=== PATIENT | male | born 1965 | race Hispanic/Latino ===

== ENCOUNTER 2017-01-30 10:49 | Emergency (ER) | payer OTHER ==
[2017-01-30 11:07] VITALS: BMI 27.1
[2017-01-30 11:08] VITALS: BP 126/84; PULSE 65; RESP 20; TEMP 98.5; O2SAT 99
[2017-01-30] MEDS ORDERED: Fluorescein 1 mg Ophthalmic Strip ONE (12:22)
--- NOTE | 2017-01-30 12:34 | ED PDOC ---
HPI: Eye Injury/Pain Time Seen by Provider: 01/30/17 12:20 Chief Complaint (Nursing): ENT Problem Chief Complaint (Provider): Left eye injury History Per: Patient History/Exam Limitations: no limitations Onset/Duration Of Symptoms: Mins Current Symptoms Are (Timing): Still Present Injury To Eye?: No Severity: Moderate Quality: "Pain" Wears Contact Lens?: No Associated Symptoms: FB Sensation, Itching, Other (conjunctival hemorrhage) Additional History Per: Patient Additional Complaint(s): The pt is a 51yo male h/o HIV on [place] presents to the ED for evaluation of left eye irritation. Pt reports he had something lodged in his throat last night and while coughing, he noticed blood in his left eye. Reports a scratchy sensation in his left eye with increased pain. Pt reports he has recently been taking Medrol dose pack for bronchiti. Does not wear contact lens. Has had zoster involving left eye in past. He denies any history of blood thinner usage , falls or injury to his eye Past Medical History Reviewed: Historical Data, Nursing Documentation, Vital Signs Vital Signs: Last Vital Signs Temp 98.5 F 01/30/17 11:07 Pulse 65 01/30/17 11:07 Resp 20 01/30/17 11:07 BP 126/84 01/30/17 11:07 Pulse Ox 99 01/30/17 11:07 - Medical History PMH: HTN - Surgical History Surgical History: No Surg Hx - Family History Family History: States: No Known Family Hx - Home Medications Home Medications: Ambulatory Orders Medication Instructions Recorded Ciprofloxacin 0.3% [Ciloxan 0.3% 1 drop LEFTEYE QID #1 bottle 01/30/17 Ophth SOLN] Naproxen [Naprosyn Tab] 375 mg PO Q8 PRN #21 tab 01/30/17 - Allergies Allergies/Adverse Reactions: Allergies Allergy/AdvReac Type Severity Reaction Status Date / Time Penicillins Allergy RASH Verified 01/30/17 11:06 Review of Systems ROS Statement: Except As Marked, All Systems Reviewed And Found Negative Eyes: Positive for: Other (left conjunctival hemorrhage) Respiratory: Positive for: Cough Gastrointestinal: Positive for: Vomiting (x 1 episode yesterday) Physical Exam - Reviewed Nursing Documentation Reviewed: Yes Vital Signs Reviewed: Yes - Physical Exam Appears: Positive for: Well, Non-toxic, No Acute Distress Head Exam: Positive for: ATRAUMATIC, NORMAL INSPECTION, NORMOCEPHALIC Skin: Positive for: Normal Color, Warm Eye Exam: Positive for: EOMI, PERRL, Other (subconjunctival hemorrhage in left eye with chemosis and fluorescein uptake by lateral aspect of eye) Neck: Positive for: Normal Respiratory: Negative for: Respiratory Distress Neurologic/Psych: Positive for: Alert, Oriented - ECG O2 Sat by Pulse Oximetry: 99 - Progress ED Course And Treament: d/w Dr. Wilkins. Patient to f/u him tomorrow at 9am for evaluation of eye or f/ u with private opthalmologist tomorrow. Medical Decision Making Medical Decision Making: Time: 1230 Impression: Left sub-conjunctival hemorrhage Plan: * Fluoroscene drop * Reassess Time: 1245 Pt stable for d/c home. Will gie Rx eye drops and Naprosyn for pain. Pt advised to f/u with PCP in 1-2 days. Scribe Attestation: All records were documented by Magalys Kelly, acting as a Scribe for CIARAN Ramirez. Provider Scribe Attestation: All medical record entries made by the Scribe were at my direction and personally dictated by me. I have reviewed the chart and agree that the record accurately reflects my personal performance of the history, physical exam, medical decision making, and the department course for this patient. I have also personally directed, reviewed, and agree with the discharge instructions and disposition. Disposition - Clinical Impression Clinical Impression: Subconjunctival hemorrhage of left eye, Corneal abrasion - Patient ED Disposition Is Patient to be Admitted: No - Disposition Referrals: Jd Wilkins MD [Staff Provider] - Disposition: Routine/Home Disposition Time: 12:45 Condition: FAIR Prescriptions: Ciprofloxacin 0.3% [Ciloxan 0.3% Ophth SOLN] 1 drop LEFTEYE QID #1 bottle Naproxen [Naprosyn Tab] 375 mg PO Q8 PRN #21 tab PRN Reason: Pain, Moderate (4-7) Instructions: Subconjunctival Hemorrhage (ED), Corneal Abrasion (ED) Forms: [facility] ED School/Work Excuse
== END 2017-01-30 12:53 | disposition home or self-care (01) ==
LOC: H.ER 10:49
DX: H11.32 Conjunctival hemorrhage, left eye (principal); I10 Essential (primary) hypertension; Z88.0 Allergy status to penicillin

== ENCOUNTER 2019-01-05 13:32 | Emergency (ER) | payer OTHER ==
[2019-01-05 13:32] VITALS: BMI 27.1
[2019-01-05 13:40] VITALS: RESP 16
[2019-01-05 14:17] LABS: BASO % 0.5 % (0.0-2.0); EOS # 0.1 K/uL (0.0-0.7); HEMOGLOBIN 14.3 g/dL (12.0-18.0); LYMPH # 2.1 K/uL (1.0-4.3); LYMPH % 33.5 % (20.0-40.0); MEAN CELL VOLUME 98.2 fl (80.0-94.0); MEAN CORPUSCULAR HEMOGLOBIN 33.7 pg (27.0-31.0); MEAN CORPUSCULAR HGB CONC 34.3 g/dL (33.0-37.0); MEAN PLATELET VOLUME 8.9 fl (7.2-11.7); MONO # 0.3 K/uL (0.0-0.8); MONO % 4.7 % (0.0-10.0); NEUT # 3.6 K/uL (1.8-7.0); NEUT % 59.3 % (50.0-75.0); RBC 4.25 Mil/uL (4.40-5.90); WHITE BLOOD COUNT 6.1 K/uL (4.8-10.8)
--- NOTE | 2019-01-05 14:24 | ED PDOC ---
Lower Extremity Pain/Injury Time Seen by Provider: 01/05/19 13:48 Chief Complaint (Nursing): Lower Extremity Problem/Injury Chief Complaint (Provider): Left leg swelling and pain History Per: Patient History/Exam Limitations: no limitations Onset/Duration Of Symptoms: Days (x2) Current Symptoms Are (Timing): Still Present Additional Complaint(s): 53 y/o male, with a history of gastritis, HTN, and high cholesterol, presents to the ER with left leg swelling and pain since yesterday. Patient states he noticed the swelling, pain and tenderness yesterday when he was touching the area and came to the ER today. He reports pain in the area and states he did not take any medications for pain. Patient is also complaining of intermittent shortness of breath for 1 week. He was seen at [facility] earlier this week and was told allergies and sinusitis contributed to shortness of breath. Denies fever, chest pain, or recent injury. He states he often travels internationally. His last trip was to [place] and came back from [facility] [place] 1 month ago. PMD: in [place] Past Medical History Reviewed: Historical Data, Nursing Documentation, Vital Signs Vital Signs: Last Vital Signs Temp 97.4 F L 01/05/19 13:34 Pulse 69 01/05/19 13:34 Resp 16 01/05/19 13:34 BP 138/86 01/05/19 13:34 Pulse Ox 97 01/05/19 13:34 Primary Care Provider: DONALD CORLEY - Medical History PMH: Gastritis, HIV, HTN, Hypercholesterolemia - Surgical History Surgical History: No Surg Hx - Family History Family History: States: No Known Family Hx - Social History Current smoker - smoking cessation education provided: No Alcohol: None - Home Medications Home Medications: Ambulatory Orders Medication Instructions Recorded Ciprofloxacin 0.3% [Ciloxan 0.3% 1 drop LEFTEYE QID #1 bottle 01/30/17 Ophth SOLN] Naproxen [Naprosyn Tab] 375 mg PO Q8 PRN #21 tab 01/30/17 - Allergies Allergies/Adverse Reactions: Allergies Allergy/AdvReac Type Severity Reaction Status Date / Time Penicillins Allergy RASH Verified 01/05/19 13:34 Review of Systems ROS Statement: Except As Marked, All Systems Reviewed And Found Negative Constitutional: Negative for: Fever Cardiovascular: Negative for: Chest Pain Respiratory: Positive for: Shortness of Breath Musculoskeletal: Positive for: Leg Pain (left leg swelling and pain) Physical Exam - Reviewed Nursing Documentation Reviewed: Yes Vital Signs Reviewed: Yes - Physical Exam Appears: Positive for: No Acute Distress Head Exam: Positive for: ATRAUMATIC, NORMOCEPHALIC Skin: Positive for: Normal Color, Warm, Dry Eye Exam: Positive for: Normal appearance ENT: Positive for: Normal ENT Inspection Neck: Positive for: Normal, Painless ROM Cardiovascular/Chest: Positive for: Regular Rate, Rhythm Respiratory: Positive for: Normal Breath Sounds. Negative for: Wheezing, Respiratory Distress Extremity: Positive for: Normal ROM, Calf Tenderness (left), Other (left lower leg: swelling and mild discoloration to the left calf; (-) redness. Other extremities are normal) Neurological/Psych: Positive for: Awake, Alert, Normal Tone, Oriented - Laboratory Results Result Diagrams: 01/05/19 14:11 01/05/19 14:11 - ECG ECG: Positive for: Interpreted By Me, Viewed By Me ECG Rhythm: Positive for: Normal QRS, Normal ST Segment, Sinus Rhythm. Negative for: ST/T Changes Rate: 61 O2 Sat by Pulse Oximetry: 97 (RA) Pulse Ox Interpretation: Normal - Progress Re-evaluation Time: 16:05 Condition: Re-examined, Improved Medical Decision Making Medical Decision Making: Initial Impression: left leg swelling and pain, shortness of breath Differential includes DVT and PE associated with DVT Initial Plan: --CT angio chest --EKG --BMP --Troponin stat --CBC --PTT --Prothrombin time --US duplex lower extremities Time: 1532 US RESULTS This report is currently processing and HAS NOT BEEN OFFICIALLY SIGNED BY THE PHYSICIAN - ESTIMATED TIME OF APPROVAL IS 01/05/2019 15:37. Date of service: 01/05/2019 HISTORY: left leg swelling tenderness redness. PRIORS: None. FINDINGS: 2-D, color and duplex Doppler analysis of the lower extremity venous circulation using routine protocol from the femoral veins through the popliteal veins. Venous compressibility: Normal. Flow and augmentation patterns: Normal. Visualized veins upper third of calf: Normal. King cyst: None. IMPRESSION: No sonographic or Doppler evidence for DVT in left lower extremity. 15:[address] FINDINGS: PULMONARY ARTERIES: No pulmonary embolism however note is made of small bubble of air along the within the anterior lumen of the pulmonary trunk due to air accompanying the intravenous injection. Pulmonary trunk measures approximately 2.3 cm. AORTA: No acute findings. No thoracic aortic aneurysm. Ascending thoracic aorta measures approximately 3.5 cm and descending thoracic aorta measures approximately 2.7 cm. No aortic atherosclerotic calcification or mural plaque present. LUNGS: Mild bibasilar atelectasis and or scarring changes both posterior sulci with minor linear scarring in the lingular and middle lobe regions as well... There is a tiny pneumatocele seen in the left posterior lower lung field. Tiny bleb right lateral lung base- lateral sulcus. PLEURAL SPACES: Unremarkable. No effusion or pneumothorax. HEART: Unremarkable. No cardiomegaly. No significant pericardial effusion. LYMPH NODES: Small nonspecific mediastinal lymph nodes are present. BONES, CHEST WALL: Mild multilevel degenerative spondylosis of the thoracic spine. OTHER FINDINGS: Small hiatal hernia. Spleen is enlarged measuring nearly 15.5 cm in AP dimension. IMPRESSION: No evidence of acute central pulmonary embolus. Note is made of a small bubble of air within the located along the within the anterior aspect of the pulmonary trunk secondary to intravenous injection Mild atelectasis/scarring both lung bases including the middle lobe and lingular regions. Small pneumatocele left lower lobe and tiny bleb right lateral lower lung field. Splenomegaly. Scribe Attestation: Documented by Elvin Feliz acting as a scribe for Kiesha Damon MD. Provider Scribe Attestation: All medical record entries made by the Scribe were at my direction and personally dictated by me. I have reviewed the chart and agree that the record accurately reflects my personal performance of the history, physical exam, medical decision making, and the department course for this patient. I have also personally directed, reviewed, and agree with the discharge instructions and disposition. Disposition - Clinical Impression Clinical Impression: Left leg swelling, Dyspnea - Patient ED Disposition Is Patient to be Admitted: No Doctor Will See Patient In The: Office Counseled Patient/Family Regarding: Studies Performed, Diagnosis, Need For Followup - Disposition Disposition: Routine/Home Disposition Time: 16:05 Condition: GOOD Additional Instructions: KARLA RENE JR, thank you for letting us take care of you today. Your provider was Kiesha Damon MD and you were treated for LT LEG SWELLING. The emergency medical care you received today was directed at your acute symptoms. If you were prescribed any medication, please fill it and take as directed. It may take several days for your symptoms to resolve. Return to the Emergency Department if your symptoms worsen, do not improve, or if you have any other problems. Please contact your doctor or call one of the physicians/clinics you have been referred to that are listed on the Patient Visit Information form that is included in your discharge packet. Bring any paperwork you were given at discharge with you along with any medications you are taking to your follow up visit. Our treatment cannot replace ongoing medical care by a primary care provider outside of the emergency department. Thank you for allowing the [facility] team to be part of your care today. If you had an X-Ray or CT scan: A Radiologist will review the ED reading if any change in treatment is needed we will contact you. If you had a blood, urine, or wound culture: It will take several days for the results, if any change in treatment is needed we will contact you. Instructions: Shortness of Breath (Dyspnea), Varicose Veins and Other Vein Disease in the Legs
[2019-01-05 14:25] LABS: INR 1.1; PROTHROMBIN TIME 12.6 Seconds (9.8-13.1)
[2019-01-05 14:28] LABS: PARTIAL THROMBOPLASTIN TIME 32.2 Seconds (25.6-37.1)
[2019-01-05 14:32] LABS: BLOOD UREA NITROGEN 12 mg/dl (9-20); CALCIUM 9.7 mg/dL (8.4-10.2); GFR NON-AFRICAN AMERICAN > 60
[2019-01-05] MEDS ORDERED: Iodixanol 320 MG/ML 100 ML BOTTLE IV ONE (14:49)
[2019-01-05] MEDS ORDERED: Sodium Chloride 0.9% 50 ML IV ONE (14:50)
--- NOTE | 2019-01-05 15:36 | US ---
Date of service: 01/05/2019 HISTORY: left leg swelling tenderness redness. PRIORS: None. FINDINGS: 2-D, color and duplex Doppler analysis of the lower extremity venous circulation using routine protocol from the femoral veins through the popliteal veins. Venous compressibility: Normal. Flow and augmentation patterns: Normal. Visualized veins upper third of calf: Normal. King cyst: None. IMPRESSION: No sonographic or Doppler evidence for DVT in left lower extremity.
--- NOTE | 2019-01-05 16:00 | CT ---
Date of service: 01/05/2019 PROCEDURE: CT Chest with contrast (Pulmonary Angiogram) HISTORY: Dyspnea the patient with recent travel left leg swelling COMPARISON: None available. TECHNIQUE: Axial computed tomography images were obtained of the chest in the pulmonary arterial phase of enhancement. Coronal and sagittal reformatted images were created and reviewed. Intravenous contrast dose: 99 cc Visipaque 320 Radiation dose: Total exam DLP = 368.46 mGy-cm. This CT exam was performed using one or more of the following dose reduction techniques: Automated exposure control, adjustment of the mA and/or kV according to patient size, and/or use of iterative reconstruction technique. FINDINGS: PULMONARY ARTERIES: No pulmonary embolism however note is made of small bubble of air along the within the anterior lumen of the pulmonary trunk due to air accompanying the intravenous injection. Pulmonary trunk measures approximately 2.3 cm. AORTA: No acute findings. No thoracic aortic aneurysm. Ascending thoracic aorta measures approximately 3.5 cm and descending thoracic aorta measures approximately 2.7 cm. No aortic atherosclerotic calcification or mural plaque present. LUNGS: Mild bibasilar atelectasis and or scarring changes both posterior sulci with minor linear scarring in the lingular and middle lobe regions as well... There is a tiny pneumatocele seen in the left posterior lower lung field. Tiny bleb right lateral lung base- lateral sulcus. PLEURAL SPACES: Unremarkable. No effusion or pneumothorax. HEART: Unremarkable. No cardiomegaly. No significant pericardial effusion. LYMPH NODES: Small nonspecific mediastinal lymph nodes are present. BONES, CHEST WALL: Mild multilevel degenerative spondylosis of the thoracic spine. OTHER FINDINGS: Small hiatal hernia. Spleen is enlarged measuring nearly 15.5 cm in AP dimension. IMPRESSION: No evidence of acute central pulmonary embolus. Note is made of a small bubble of air within the located along the within the anterior aspect of the pulmonary trunk secondary to intravenous injection Mild atelectasis/scarring both lung bases including the middle lobe and lingular regions. Small pneumatocele left lower lobe and tiny bleb right lateral lower lung field. Splenomegaly.
[2019-01-05 16:30] VITALS: BP 131/79; PULSE 68; TEMP 98.3; O2SAT 100
--- NOTE | 2019-01-07 06:34 | CARD ---
APPROVED REPORT Date of service: 01/05/2019 EKG Measurement Heart [id number] <Conclusion> Normal sinus rhythm Normal ECG
== END 2019-01-05 16:29 | disposition home or self-care (01) ==
LOC: H.ER 13:32
DX: M79.89 Other specified soft tissue disorders (principal); R06.03 Acute respiratory distress
CPT/HCPCS: 71275; 80048; 84484; 85025; 85610; 85730; 93005; 93971; 99284; Q9967